=== PATIENT | male | born 1965 | race African-American/Black ===

== ENCOUNTER → 2020-03-15 | Outpatient (CLI) | payer OTHER ==
[~2020-03-15] MED LIST: ASPIRIN EC81 M1 PO; AUGMENTIN 875875 M1 PO; COUMADIN7.5 MG PO; FLECAINIDE ACE100 MG PO; FLECAINIDE ACET50 M1 PO; HYDROCODON-ACE1 EAC7; IBUPROFEN 800800 M1 PO; NORCO 5-325 TA1 EACH PO; SENNA S TABLET1 EACH PO; SIMVASTATIN20 MG PO; TOPROL XL50 MG PO
== END ==
LOC: SJCVCIMAG 08:31
PROVIDERS: ATTEND Internal Medicine Cardiovascular Disease
DX: I08.8 Other rheumatic multiple valve diseases (principal); I48.0 Paroxysmal atrial fibrillation; I47.1 Supraventricular tachycardia

== ENCOUNTER → 2020-04-17 | Outpatient (CLI) | payer OTHER ==
[2020-04-17 08:56] LABS: HEMATOCRIT 42.6 % (42.0-52.0); HEMOGLOBIN 14.2 gm/dL (14.0-18.0); MCH 32.8 pg (26.0-34.0); MCHC 33.4 g/dL (28.0-37.0); MCV 98.1 fL (80.0-100.0); RBC 4.34 mil/uL (4.50-6.00); WBC 9.3 thou/uL (4.0-11.0)
[2020-04-17 09:19] LABS: ALBUMIN 3.9 g/dL (3.4-5.0); CALCIUM 9.6 mg/dL (8.5-10.1); CREATININE 1.5 mg/dL (0.7-1.3); POTASSIUM 3.9 mmol/L (3.5-5.1); TOTAL PROTEIN 7.9 g/dL (6.4-8.2)
[2020-04-17 09:52] LABS: TOTAL BILIRUBIN 0.4 mg/dL (0.2-1.0)
== END ==
LOC: CAT 07:56 → EDSTATUS 09:52 → CAT 09:59
PROVIDERS: ATTEND Internal Medicine Cardiovascular Disease
DX: I48.91 Unspecified atrial fibrillation (principal); N28.1 Cyst of kidney, acquired

== ENCOUNTER → 2020-04-17 | Outpatient (CLI) | payer OTHER | LOC: LAB 10:30 | PROVIDERS: ATTEND Internal Medicine Cardiovascular Disease | DX: Z01.812 Encounter for preprocedural laboratory examination (principal); Z20.822 Contact with and (suspected) exposure to COVID-19 ==

== ENCOUNTER → 2020-04-20 | Outpatient (CLI) | payer OTHER ==
[~2020-04-20] VITALS: Ht 195.6 cm; Wt 114.0 kg
[~2020-04-20] MED LIST changes: +TAMBOCOR 100 M100 M1 PO
--- NOTE | ~2020-04-20 | P ---
[facility] [place] [address] PROCEDURE REPORT Name: SUSSY CHILEL Room #: REG [facility]#: [id number] Admission: 04/20/20 Attend Phys: Luca Eng MD Discharge: Date of : 65 Report #: [id number] THIS REPORT FOR: cc: FAM - Family physician unknown FAM - Family physician unknown Luca Eng MD ~ PREOPERATIVE DIAGNOSIS: Atrial fibrillation. POSTOPERATIVE DIAGNOSIS: Atrial fibrillation. HISTORY: The patient is a 55-year-old with history of recurrent AFib despite medical therapy. He is here for an ablation. PROCEDURES PERFORMED: 1. Atrial fibrillation ablation, CPT code 79298. 2. Program stimulation pacing after IV drug infusion, CPT code 87191. 3. Mapping, CPT code 37036. 4. Intracardiac echo, CPT code 62631. ANESTHESIA: The patient underwent general anesthesia with no anesthesia related complications. DESCRIPTION OF PROCEDURE: The patient underwent informed consent. We discussed the details of the procedure including the risks, which include but not limited to bleeding, vascular damage, stroke, [place] as well as cardiac perforation. He understood these risks and is willing to proceed. The patient was brought to EP laboratory in fasting and sedated state, prepped and draped in a sterile fashion, placed under general anesthesia. I then obtained access to the right femoral vein x 3 with sheaths positioned using the modified Seldinger technique, the right femoral vein and placed an 8, 9 and 7-Amharic short sheath. Next, under fluoroscopy, a decapolar catheter was placed easily in the coronary sinus for left atrial pacing and recording and eventually was moved for phrenic nerve pacing at the subclavian position. ICE catheter was placed in the right atrium. At baseline, the patient was in sinus rhythm. The left atrium demonstrated a large left atrial appendage, 2 left pulmonary veins with a very small left inferior pulmonary vein and 2 right pulmonary veins. The interatrial septum was thin. My ICE images were merged with the patient's cardiac CT scan. The patient was then systemically heparinized and a transseptal was performed using a SL1 sheath and [place] needle. This was a straight forward and I exchanged for the cryo sheath and placed the Lasso catheter into the left atrium. Next, 3D geometry of the left atrium was created and the cryoballoon was placed into the left atrium. The left superior pulmonary vein underwent a 4-minute freeze followed by a 3-minute freeze. The vein isolated within 24 seconds of [facility] [address] [place] [address] PROCEDURE REPORT Name: USSSY CHILEL Room #: REG CL Ericka#: [id number] Admission: 04/20/20 Attend Phys: Luca Eng MD Discharge: Date of : 65 Report #: [id number] the second freeze. The left inferior pulmonary vein underwent a single 4-minute freeze as this vein isolated within 40 seconds. The right superior pulmonary vein underwent a single 4-minute freeze and isolated within 40 seconds. Interestingly, the right superior pulmonary vein had frequent bursts of atrial tachycardia that no longer conducted to the atrium. I then turned to the right inferior pulmonary vein and performed an initial 3-minute freeze, which did not result in isolation, I repositioned the balloon and this resulted in an atrial tachycardia from the right inferior pulmonary vein. I came on and performed ablation and within about 30 seconds this atrial tachycardia terminated and at 60 seconds, this vein was isolated. The second freeze was of 4 minutes' duration. All the veins were now isolated and voltage map was performed. There was evidence of entrance and exit block in all 4 pulmonary veins. EP STUDY: Next, a basic EP study was performed. Atrial burst pacing was performed and AV block was noted at 280 milliseconds. Atrial ERP was noted at 210 milliseconds at [address] cycle length. Isoproterenol infusion was initiated at 2 mcg per minute and atrial burst pacing was again performed. AV block was noted at 230 milliseconds and aggressive atrial pacing maneuvers were performed and I could not induce any atrial fibrillation, nor any atrial flutter. There was also no evidence of SVT. As such, the procedure was concluded. Using intracardiac ultrasound, I verified there was no pericardial effusion. The patient received systemic protamine and a [id number]-ab-[id number] suture was deployed to the right groin, which was secured using a 3-way stopcock. The patient awoke neurologically and hemodynamically intact. No complications and no significant bleeding. CONCLUSIONS: 1. Successful AFib ablation with isolation of the pulmonary veins. 2. EP study on and off isoproterenol with no induction of AFib, atrial flutter or SVT. By: [id number] Luca Eng MD /nt
[2020-04-20 07:19] VITALS: BP 128/91
[2020-04-20 07:45] LABS: ABSOLUTE NEUTROPHILS 3.3 thou/uL (1.4-8.2); BASOPHILS 0.7 % (0.0-2.0); EOSINOPHILS 2.5 % (0.0-3.0); HEMATOCRIT 39.5 % (42.0-52.0); HEMOGLOBIN 13.2 gm/dL (14.0-18.0); LYMPHOCYTES 25.2 % (24.0-44.0); MCH 32.3 pg (26.0-34.0); MCHC 33.4 g/dL (28.0-37.0); MCV 96.8 fL (80.0-100.0); MONOCYTES 8.4 % (1.0-8.0); PLATELET COUNT 295 thou/uL (150-400); POLYS 63.2 % (36.0-66.0); RBC 4.08 mil/uL (4.50-6.00); RDW 12.6 % (10.5-14.5); WBC 5.2 thou/uL (4.0-11.0)
[2020-04-20 07:52] LABS: CALCIUM 9.6 mg/dL (8.5-10.1); CREATININE 1.4 mg/dL (0.7-1.3); POTASSIUM 3.9 mmol/L (3.5-5.1)
[2020-04-20 07:58] LABS: ALBUMIN 3.9 g/dL (3.4-5.0); TOTAL BILIRUBIN 0.4 mg/dL (0.2-1.0); TOTAL PROTEIN 7.9 g/dL (6.4-8.2)
[2020-04-20 08:08] LABS: APTT 28.3 Seconds (24.5-32.8); PROTIME 10.4 Seconds (9.3-11.4)
== END | disposition home or self-care (01) ==
LOC: CATH 06:23
PROVIDERS: ATTEND Internal Medicine Cardiovascular Disease
DX: I48.91 Unspecified atrial fibrillation (principal); Z98.890 Other specified postprocedural states; Z79.899 Other long term (current) drug therapy; Z79.01 Long term (current) use of anticoagulants; Z90.49 Acquired absence of other specified parts of digestive tract; Z82.49 Family history of ischemic heart disease and other diseases of the circulatory system; Z79.82 Long term (current) use of aspirin
CPT/HCPCS: 62110; 62900; 65020; 65040; 70005

== ENCOUNTER → 2020-07-14 | Outpatient (CLI) | payer OTHER | LOC: LAB 07:46 | PROVIDERS: ATTEND Internal Medicine Cardiovascular Disease | DX: Z01.812 Encounter for preprocedural laboratory examination (principal); Z20.822 Contact with and (suspected) exposure to COVID-19 ==

== ENCOUNTER → 2020-07-18 | Outpatient (CLI) | payer OTHER ==
[~2020-07-18] VITALS: Ht 195.6 cm; Wt 113.6 kg
[~2020-07-18] MED LIST changes: +XARELTO20 MG PO
[2020-07-18 07:11] VITALS: BP 121/91
[2020-07-18 07:37] LABS: ABSOLUTE NEUTROPHILS 3.6 thou/uL (1.4-8.2); BASOPHILS 0.5 % (0.0-2.0); EOSINOPHILS 2.8 % (0.0-3.0); HEMATOCRIT 39.9 % (42.0-52.0); HEMOGLOBIN 13.5 gm/dL (14.0-18.0); LYMPHOCYTES 28.6 % (24.0-44.0); MCH 32.8 pg (26.0-34.0); MCHC 33.9 g/dL (28.0-37.0); MCV 96.5 fL (80.0-100.0); MONOCYTES 7.5 % (1.0-8.0); PLATELET COUNT 268 thou/uL (150-400); POLYS 60.6 % (36.0-66.0); RBC 4.13 mil/uL (4.50-6.00); RDW 12.7 % (10.5-14.5)
[2020-07-18 07:42] LABS: CALCIUM 9.1 mg/dL (8.5-10.1); CREATININE 1.3 mg/dL (0.7-1.3); POTASSIUM 4.5 mmol/L (3.5-5.1)
[2020-07-18 07:49] LABS: ALBUMIN 3.7 g/dL (3.4-5.0); TOTAL BILIRUBIN 0.3 mg/dL (0.2-1.0); TOTAL PROTEIN 7.5 g/dL (6.4-8.2)
[2020-07-18 07:51] LABS: APTT 29.4 Seconds (24.5-32.8); INR 1.06; PROTIME 11.5 Seconds (10.5-12.1)
--- NOTE | 2020-08-02 16:05 | P ---
[facility] [place] [address] PROCEDURE REPORT Name: SUSSY CHILEL Room #: [facility]#: [id number] Admission: 07/18/20 Attend Phys: Luca Eng MD Discharge: Date of : 65 Report #: [id number] THIS REPORT FOR: cc: FAM - Family physician unknown FAM - Family physician unknown Luca Eng MD ~ DOC #: [id number] Luca Eng MD DATE OF SERVICE: 07/18/2020 PROCEDURE: Cardioversion. PREOPERATIVE DIAGNOSIS: Atrial flutter. POSTOPERATIVE DIAGNOSIS: Atrial flutter. PROCEDURE IN DETAIL: The patient underwent informed consent. We discussed the details of the procedure including the risks. He was then prepped and draped in a standard fashion. He was sedated by the anesthesiology service and then underwent 200 joule synchronized cardioversion with restorationist of sinus rhythm. There were no procedural complications. Successful direct current cardioversion for atrial flutter. MD RICH Cueva/SHAILA <ELECTRONICALLY SIGNED> By: Luca Eng MD 08/02/20 1605 [id number] Luca Eng MD /nt
== END | disposition home or self-care (01) ==
LOC: CATH 06:24
PROVIDERS: ATTEND Internal Medicine Cardiovascular Disease
DX: I48.92 Unspecified atrial flutter (principal); I48.91 Unspecified atrial fibrillation; K21.9 Gastro-esophageal reflux disease without esophagitis; Z98.890 Other specified postprocedural states; Z79.899 Other long term (current) drug therapy; Z79.01 Long term (current) use of anticoagulants; Z90.49 Acquired absence of other specified parts of digestive tract

== ENCOUNTER 2020-10-09 09:27 | Observation (INO) | payer OTHER ==
[~2020-10-09] VITALS: Ht 195.6 cm; Wt 113.4 kg
--- NOTE | ~2020-10-09 | P ---
[facility] [place] [address] PROCEDURE REPORT Name: SUSSY CHILEL Room #: [facility] Sonya Barnett#: [id number] Admission: 10/09/20 Attend Phys: Luca Eng MD Discharge: 10/10/20 Date of : 65 Report #: [id number] THIS REPORT FOR: cc: FAM - Family physician unknown FAM - Family physician unknown Luca Eng MD ~ DATE OF SERVICE: 10/09/2020 PREOPERATIVE DIAGNOSES: Atrial fibrillation and atrial flutter. POSTOPERATIVE DIAGNOSES: Atrial fibrillation and atrial flutter. PROCEDURES PERFORMED: 1. Atrial fibrillation ablation -- CPT code 73707. 2. Program stimulation pacing after IV drug infusion, CPT code 51655. 3. 3D mapping, CPT code 05750. 4. Intracardiac echo, CPT code 46068. 5. Second pathway ablation -- CPT code 15066. HISTORY: The patient is a 55-year-old male with recurrent Afib, status post recent ablation here for a repeat procedure. ANESTHESIA: The patient underwent general anesthesia. No anesthesia related complications. DESCRIPTION OF PROCEDURE: The patient underwent informed consent. We discussed the details of the procedure as previously documented. Next, the patient was brought to the EP laboratory in fasting and sedated state, prepped and draped in a sterile fashion, obtained access to the bilateral femoral veins placing an 8, 9 and 7-Marshallese short sheath in the right femoral vein and a 7-Marshallese short sheath in the left femoral vein. Under fluoroscopy, a decapolar catheter was placed in the coronary sinus and ICE catheter was placed in the right atrium. Using intracardiac ultrasound, a 3D geometry of the right atrium was created and was merged with the prior CT scan. The patient was noted to be in sinus rhythm. A basic EP study was performed to see if I could induce the atrial flutter that he has been cardioverted out of twice in the past several months. At baseline, he was in sinus rhythm, sinus cycle length of 1230 milliseconds, [place] internal 170 milliseconds, QRS duration 90 milliseconds, QT interval 470 milliseconds. AV block was noted at 210 milliseconds. Atrial ERP was noted at 200 milliseconds at [address] cycle length. Aggressive atrial burst pacing was performed down to 230 milliseconds. Double atrial extrastimuli wire performed and I could not induce any AFib or any atypical atrial flutter. Isoproterenol infusion was started at 2 mcg per minute and AV block was noted at 220 milliseconds and no Afib could be induced. Therefore, the patient was prepped for transseptal. The patient was systemically heparinized and a transseptal was performed using an SL1 sheath and a [place] needle. Actually a transseptal was [address] [address] PROCEDURE REPORT Name: SUSSY CHILEL Room #: 212-P KARON Barnett#: [id number] Admission: 10/09/20 Attend Phys: Luca Eng MD Discharge: 10/10/20 Date of : 65 Report #: [id number] performed using an Agilis sheath, and a [place] needle. This was straightforward and the PentaRay was placed into the left atrium. All veins were isolated except for the right superior pulmonary vein that appeared to be reconnected and had fractionated signals along this vein and along the gal. Therefore, ablation was performed around the right superior pulmonary vein and also along the gal to further isolate this area. Next, once this was completed, catheters were pulled to the right atrium and the patient was prepped for cavotricuspid isthmus-dependent flutter given this clinical recurrence. As previously documented, the patient had an atrial flutter ablation performed years ago by another director on air and voltage map today demonstrated that there appeared to be reconnection along the posterior isthmus as there were still signals along this area. Ablation was performed along this region and post-ablation, the transisthmus conduction time had increased from 140 milliseconds to 170 milliseconds. This was verified using a duodecapolar catheter. As such, the procedure was concluded. The patient was given systemic protamine and once ACT was at acceptable range, catheters and sheaths were pulled and hemostasis obtained. CONCLUSIONS: 1. Successful AFib ablation with re-isolation of the right superior pulmonary vein and additional ablation along the gal region. 2. Successful atrial flutter ablation with evidence of bidirectional block. By: [id number] Luca Eng MD /nt
[2020-10-09 10:15] VITALS: BP 127/82
[2020-10-09] MEDS ORDERED: TOPROL XL50 MG PO (10:21)
[2020-10-09 10:41] LABS: ABSOLUTE NEUTROPHILS 2.9 thou/uL (1.4-8.2); BASOPHILS 0.5 % (0.0-2.0); HEMATOCRIT 40.5 % (42.0-52.0); HEMOGLOBIN 13.6 gm/dL (14.0-18.0); LYMPHOCYTES 35.3 % (24.0-44.0); MCH 32.4 pg (26.0-34.0); MCHC 33.6 g/dL (28.0-37.0); MCV 96.6 fL (80.0-100.0); MONOCYTES 6.9 % (1.0-8.0); PLATELET COUNT 219 thou/uL (150-400); POLYS 55.3 % (36.0-66.0); RDW 13.1 % (10.5-14.5); WBC 5.2 thou/uL (4.0-11.0)
[2020-10-09 10:51] LABS: CALCIUM 9.2 mg/dL (8.5-10.1); CREATININE 1.3 mg/dL (0.7-1.3); POTASSIUM 4.2 mmol/L (3.5-5.1)
[2020-10-09 10:54] LABS: APTT 25.9 Seconds (24.5-32.8); PROTIME 10.9 Seconds (10.5-12.1)
[2020-10-09 10:57] LABS: TOTAL BILIRUBIN 0.5 mg/dL (0.2-1.0); TOTAL PROTEIN 7.7 g/dL (6.4-8.2)
[2020-10-09 16:45] VITALS: BP 114/59
--- NOTE | 2020-10-09 18:04 | NUR ---
PT TO THEN UNIT POST ABLATION - ORIENTED TO ROOM AND BEDSPACE. GROIN SITE C/D/I. VSS. SIG OTHER AT THE BEDISDE. REMAINS ON BEDREST AT PRESENT TIME. HEAMOSTATIS OBTAINED AT 1537. PAVAN DIET AND FLUIDS. NO CO'S AT THE PRESENT TIME.
--- NOTE | 2020-10-10 06:14 | NUR ---
patients cares were assumed at shift change. patient was assessed and found to be of an unstable b/p on arrival from er . this morning B/P 149/90. PATIENT CONTINUES TO HAVE A HEART RATE OF 140'S WITH ANY MOTION. CONSULTS TO CARDIOLOGY DONE. RONUNDS WERE DONE.
--- NOTE | 2020-10-10 06:33 | NUR ---
PATIENTS CARES WERE ASSUMED AT [facility]. PATIENT WAS ASSESSED AND MEDS WERE PASSED. PATIENT CONTINUES TO BE INDEPENDENT IN HIS ROOM. NO REQUEST WERE MADE AFTER THE BED EXSTENDER WAS DELIVERED. ROUNDS WERE DONE, THE BED IS IN A LOW AND LOCKED TOGETHER
[2020-10-10 07:30] VITALS: BP 127/70
[2020-10-10] MEDS ORDERED: TOPROL XL50 MG PO (08:07)
[2020-10-10 08:22] VITALS: BP 114/59
== END 2020-10-10 08:56 | disposition home or self-care (01) ==
LOC: CATH 09:27 → 2N 16:50
PROVIDERS: ADMIT Internal Medicine Cardiovascular Disease; ATTEND Internal Medicine Cardiovascular Disease
DX: I48.91 Unspecified atrial fibrillation (principal); I48.92 Unspecified atrial flutter; Z79.82 Long term (current) use of aspirin; Z79.899 Other long term (current) drug therapy
CPT/HCPCS: 62110; 62900; 65020; 70005